=== PATIENT | female | born 1960 | race Caucasian/White ===

== ENCOUNTER → 2019-01-26 | Outpatient (CLI) | payer BC ==
--- NOTE | 2019-01-26 16:37 | Diagnostic Imaging Report ---
INDICATION: Right hip pain. Time of exam 3:02 p.m. FINDINGS: Two views of the right hip show normal femoral acetabular alignment. The joint space is well-maintained. Femoral head and neck are intact. No fractures are seen. IMPRESSION: No acute bony abnormality is detected. Dictated by: Dictated on workstation # [id number]
--- NOTE | 2019-01-26 17:02 | Diagnostic Imaging Report ---
INDICATION: Low back pain. TIME OF EXAM: 3:03 p.m. FINDINGS: Vertebral body heights are well maintained. Disc spaces are preserved. No fracture or subluxation is seen. No definite spondylolysis or spondylolisthesis is seen. IMPRESSION: No acute bony abnormality is detected. Dictated by: Dictated on workstation # [id number]
--- NOTE | 2019-01-26 18:43 | Diagnostic Imaging Report ---
INDICATION: Right thumb pain. TIME OF EXAM: 2:59 p.m. EXAMINATION: Three views of the right thumb were obtained. FINDINGS: Alignment is normal. The first metacarpal as well as the phalanges of the thumb appear to be intact. No fractures are seen. Joint spaces are maintained. Soft tissues are unremarkable. IMPRESSION: No acute bony abnormality is detected. Dictated by: Dictated on workstation # [id number]
== END ==
LOC: RAD FS 14:51
PROVIDERS: ATTEND Nurse Practitioner
DX: M54.5 Low back pain (principal); M79.644 Pain in right finger(s); M25.551 Pain in right hip
CPT/HCPCS: 72110; 73140; 73502

== ENCOUNTER → 2019-07-03 | Outpatient (CLI) | payer BC ==
--- NOTE | 2019-07-03 18:31 | Diagnostic Imaging Report ---
EXAMINATION: Left foot radiograph, 3 views. COMPARISON: None. HISTORY: 59-year-old female, left foot pain. FINDINGS: There is a normal variant os peroneum. There is no identified tibiotalar joint effusion. There is a small calcaneal heel spur. There is very mild degenerative type enthesopathy of the dorsal midfoot. There is no identified acute fracture. There is no identified radiopaque foreign body. Joint spaces appear well preserved. IMPRESSION: 1. No identified acute bony abnormality of the left foot. Dictated on workstation # [id number]
== END ==
LOC: RAD FS 16:20
PROVIDERS: ATTEND Nurse Practitioner Family
DX: M79.672 Pain in left foot (principal)
CPT/HCPCS: 73630

== ENCOUNTER → 2022-05-13 | Outpatient (CLI) | payer SELFPAY ==
--- NOTE | 2022-05-13 10:20 | Diagnostic Imaging Report ---
Indication: Calcium scoring for cardiac disease. Please see separate calcium score report. FINDINGS: The chest is imaged from the ellen through the diaphragm. [id number] is limited to predominantly the right lower lung and mediastinum. There is no mediastinal or hilar adenopathy of pathologic size. No pleural effusion or pericardial effusion is seen. There is a small hiatal hernia noted. The ribs and bones visualized appear normal. IMPRESSION: Small hiatal hernia without evidence of incarceration. Dictated by: Dictated on workstation # [id number]
== END ==
LOC: RAD FS 07:50
PROVIDERS: ATTEND Nurse Practitioner
DX: K44.9 Diaphragmatic hernia without obstruction or gangrene (principal); R53.83 Other fatigue
CPT/HCPCS: 75571